=== PATIENT | male | born 1990 | race Two or more races ===

== ENCOUNTER 2017-02-08 22:34 | Inpatient (IN) | payer BC ==
[~2017-02-08] VITALS: Ht 177.8 cm; Wt 87.5 kg
[2017-02-08 22:15] VITALS: BP 131/95
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
--- NOTE | 2017-02-08 23:35 | NUR ---
MS RN NOTE: PATIENT OFF FLOOR FOR CT OF HEAD. ISOLATION PRECAUTION OBSERVED.
--- NOTE | 2017-02-08 23:40 | NUR ---
MS RN NOTE: PATIENT BACK FROM CT, NO ACUTE DISTRESS NOTED. WILL CONTINUE TO MONITOR.
[2017-02-09] MEDS ORDERED: DIPH50CA4 PO (00:11)
[2017-02-09] MEDS ORDERED: BACL20TA PO (00:11)
[2017-02-09] MEDS ORDERED: ALBU2.5V38 NEB (00:11)
[2017-02-09] MEDS ORDERED: DICY10CA59 PO (00:11)
[2017-02-09] MEDS ORDERED: QUET100T PO (00:11)
[2017-02-09] MEDS ORDERED: MAG30ORA PO (00:11)
[2017-02-09] MEDS ORDERED: BUPR2TAB3 SL (00:11)
[2017-02-09] MEDS ORDERED: CLON0.1T PO (00:11)
[2017-02-09] MEDS ORDERED: FOLI1TAB16 PO (00:17)
[2017-02-09] MEDS ORDERED: IBUP-1955 PO (00:17)
[2017-02-09] MEDS ORDERED: IBUP-51 PO (00:17)
[2017-02-09] MEDS ORDERED: GABA600T PO (00:17)
[2017-02-09] MEDS ORDERED: LITH300T3 PO (00:24)
[2017-02-09] MEDS ORDERED: KETO30VI14 IM (00:24)
[2017-02-09] MEDS ORDERED: LOPE-156 PO (00:24)
[2017-02-09] MEDS ORDERED: LORA2VIA11 IM (00:54)
[2017-02-09] MEDS ORDERED: ONDA4TAB8 SL (00:54)
[2017-02-09] MEDS ORDERED: OXCA300T4 PO (00:54)
[2017-02-09] MEDS ORDERED: THIA100T74 PO (00:54)
[2017-02-09] MEDS ORDERED: MAGN400O6 PO (00:54)
[2017-02-09] MEDS ORDERED: ONDA4VIA30 IM (00:54)
[2017-02-09] MEDS ORDERED: VANC1.5P9 IV (00:54)
[2017-02-09] MEDS ORDERED: POLY17PO4 PO (00:54)
[2017-02-09] MEDS ORDERED: PHEN30TA40 PO (00:54)
[2017-02-09] MEDS ORDERED: NORM10004 IV (00:54)
[2017-02-09] MEDS ORDERED: PIPE3.3711 IV (00:54)
[2017-02-09] MEDS ORDERED: MULT-24 PO (00:54)
[2017-02-09] MEDS ORDERED: VANC1.252 IV (00:58)
--- NOTE | 2017-02-09 01:00 | NUR ---
MS RN NOTE: MEDICATIONS FROM [facility] ENTERED TO RECONCILE MEDICATIONS. SPOKE TO DR. MEDINA REGARDING NEGATIVE CT HEAD RESULTS. INFORM DR. MEDINA THAT MEDICATIONS ARE ENTERED AND THAT ARE NO ADMIT ORDERS YET. MD WILL ENTER ORDERS. WILL CONTINUE TO MONITOR.
[2017-02-09] MEDS ORDERED: MAG HYDROX/AL HYDROX/SIMETH 30 ML UDC PO PRN (01:30)
[2017-02-09] MEDS ORDERED: KETOROLAC TROMETHAMINE INJ 30 MG/ML VIAL IM PRN (01:30)
[2017-02-09] MEDS ORDERED: DICYCLOMINE HCL 10 MG CAPSULE PO PRN (01:30)
[2017-02-09] MEDS ORDERED: IBUPROFEN 200 MG TABLET PO PRN (01:30)
[2017-02-09] MEDS ORDERED: ALBUTEROL FS 2.5 MG/3 ML VIAL.NEB NEB PRN (01:30)
[2017-02-09] MEDS ORDERED: diphenhydrAMINE HCL 50 MG CAPSULE PO PRN (01:30)
[2017-02-09] MEDS ORDERED: POLYETHYLENE GLYCOL 3350 17 GM POWD.PACK PO PRN (01:30)
[2017-02-09] MEDS ORDERED: CLONIDINE HCL 0.1 MG TABLET PO PRN (01:30)
[2017-02-09] MEDS ORDERED: MAGNESIUM HYDROXIDE 30 ML UDC PO PRN (01:30)
[2017-02-09] MEDS ORDERED: LORAZEPAM INJ 2 MG/ML VIAL IV PRN (02:00)
[2017-02-09] MEDS ORDERED: IBUPROFEN 200 MG TABLET ONE (05:12)
[2017-02-09] MEDS ORDERED: PIPERACILLIN /TAZOBACTAM 3.375 G VIAL IV ONE (05:25)
[2017-02-09] MEDS ORDERED: PIPERACILLIN /TAZOBACTAM 3.375 G VIAL IV SCH (06:00)
--- NOTE | 2017-02-09 06:00 | NUR ---
MS RN NOTE: PATIENT RESTING IN BED, NO ACUTE DISTRESS NOTED. BREATHING EVEN AND UNLABORED, NO SOB NOTED. IV TO RIGHT FOREARM IN PLACE, TO HANG ZOSYN PER MD ORDER. ISOLATION PRECAUTIONS OBSERVED. BED LOCKED AND IN LOWEST POSITION, CALL LIGHT IN REACH. WILL ENDORSE TO DAY NURSE TO CONTINUE WITH PLAN OF CARE.
[2017-02-09 06:43] LABS: BASOPHILS % (AUTO) 0.1 % (0.0-2.0); EOSINOPHILS # (AUTO) 0.3 /CMM (0.0-0.7); EOSINOPHILS % (AUTO) 2.4 % (0.0-6.0); HEMATOCRIT 42 % (39-51); HEMOGLOBIN 14.2 g/dL (13.5-17.5); LYMPHOCYTES # (AUTO) 1.5 /CMM (0.8-4.8); LYMPHOCYTES % (AUTO) 11.5 % (20.0-44.0); MEAN CORPUSCULAR HEMOGLOBIN 30 PG (26.0-33.0); MEAN CORPUSCULAR HGB CONC 34 g/dl (31.0-36.0); MEAN CORPUSCULAR VOLUME 88 fL (80-96); MONOCYTES # (AUTO) 0.9 /CMM (0.1-1.30); NEUTROPHILS # (AUTO) 10.4 /CMM (1.8-8.9); PLATELET COUNT (AUTO) 215 /CMM (150-450); RDW COEFFICIENT OF VARIATION 12.8 (11.5-15.0); RED BLOOD CELL COUNT(AUTO) 4.77 MIL/uL (4.5-6.0); WHITE BLOOD COUNT (AUTO) 13.2 K/uL (4.3-11.0)
[2017-02-09 07:26] LABS: ALBUMIN 3.5 g/dL (3.4-5.0); BILIRUBIN,TOTAL 1.2 mg/dL (0.2-1.0); CALCIUM, SERUM 8.7 mg/dL (8.5-10.1); CREATININE 1.1 mg/dL (0.6-1.3); MAGNESIUM 2.1 mg/dL (1.8-2.4); POTASSIUM 4.1 mmol/L (3.5-5.1); TOTAL PROTEIN, SERUM 7.1 g/dL (6.4-8.2)
--- NOTE | 2017-02-09 07:30 | NUR ---
MS RN AM NOTE: RECEIVED PATIENT IN BED, AAO X 3, ON RA, NO ACUTE DISTRESS NOTED. BREATHING EVEN AND UNLABORED, NO SOB NOTED. DENIES PAIN AT THIS TIME. IV TO RIGHT FOREARM #22G IN PLACE, FLUSHES WELL SITE CLEAR, . PT CLAIMS HE HAS WEAKNESS TO LEFT LEG, PATIENT WITH SLIGHT SLURRED SPEECH, ISOLATION PRECAUTIONS OBSERVED FOR R/O PTB. POC DISCUSSED FOR TODAY. BED LOCKED AND IN LOWEST POSITION, CALL LIGHT IN REACH. WILL CONTINUE TO MONITOR.
[2017-02-09 08:00] VITALS: BP 118/75
--- NOTE | 2017-02-09 08:15 | NUR ---
MS RN NOTES ADMINISTERED MEDICATIONS. PT C/O OF ROOM VERY HOT, INFORMED HIM THAT ENGINEERING HAS BEEN CALLED AND THAT WILL CHECK ON HIS ROOM.
--- NOTE | 2017-02-09 08:30 | NUR ---
MS RN NOTES PATIENT WANTS HIS DETOX MEDICATIONS, AND INFORMED HIM THAT WILL VERIFY WITH HIS ATTENDING MD FOR TODAY. ALSO PATIENT WANTS TO GET OUT OF HIS ROOM TO WALK AROUND THE HOSPITAL, EXPLAINED TO BANDAR THAT HE IS IN ISOLATION FOR NOW AND CANT BE WALKING OUTSIDE.
[2017-02-09] MEDS ORDERED: PHENOBARBITAL 30 MG TABLET PO SCH (09:00)
[2017-02-09] MEDS ORDERED: THIAMINE HCL 100 MG TABLET PO SCH (09:00)
[2017-02-09] MEDS ORDERED: VANCOMYCIN IV SCH (09:00)
[2017-02-09] MEDS ORDERED: DEXTROSE IV SCH (09:00)
[2017-02-09] MEDS ORDERED: BACLOFEN (10 MG) 10 MG TABLET PO PRN ×2 (09:00)
[2017-02-09] MEDS ORDERED: OXCARBAZEPINE 150 MG TABLET PO SCH (09:00)
[2017-02-09] MEDS ORDERED: FOLIC ACID 1 MG TABLET PO SCH (09:00)
[2017-02-09] MEDS ORDERED: QUETIAPINE FUMARATE 100 MG TABLET PO SCH (09:00)
[2017-02-09] MEDS ORDERED: MULTIVITAMINS,THERAGRAN 1 UDTAB TABLET PO SCH (09:00)
[2017-02-09] MEDS ORDERED: [UNRECOGNIZED DRUG - OTHER] IV SCH (09:00)
--- NOTE | 2017-02-09 09:00 | NUR ---
MS RN NOTES PATIENT VERY AGGRAVATED, HE WANTS TO GO BACK TO [facility] WHERE HE CAME FROM, I EXPLAINED TO HIM THAT HE WAS SENT BY THEM HERE FOR HIS R/O PTB AND STATED THAT HIS CXR WAS TAKEN THERE TWICE WITH NEGATIVE RESULTS. ALSO PATIENT STATED THAT THERE IS NO HOLD PAPERS THAT HE SIGNED AND NO REASON FOR HIM TO HAVE LIMITED FREEDOM OF ACTIVITY. DESPITE EXPLAINING HIS MEDICAL CONDITION, THE RISKS, AND THE BENEFITS OF BEING TREATED IN THE HOSPITAL, HE YANKED OUT HIS IV ACCESS, PICKED UP ALL HIS BELONGINGS, AND WALKED OUT. SECURITY WAS CALLED ON HIM, BUT HE STILL LEFT. MD AND NURSING [facility] ARCHITECT AWARE. Addendum: 02/09/17 at 1111 by ANISH MORLEY RN INCIDENT REPORT SUBMITTED Unique Id: [id number]
--- NOTE | 2017-02-09 09:40 | NUR ---
Social service consult requested by Dr. Metcalf regarding pt. coming to [facility] from [facility] in [place]. SW was unable to assess pt. due to pt. went awol this morning. Pt. was admitted to [facility] to rule out TB. Upon SW being notified pt. went awol, Quique Velazquez, supplier manager of infection control was notified of pt. going awol from the hospital.
== END 2017-02-09 09:00 | disposition left against medical advice (07) | DRG 179 ==
LOC: MEDSG2 22:34
PROVIDERS: ADMIT Internal Medicine; ATTEND Internal Medicine
DX: R76.11 Nonspecific reaction to tuberculin skin test without active tuberculosis (principal)
CPT/HCPCS: 36415; 70450-TC; 80053-TC; 83735-TC; 84100-TC; 85025-TC; A4216; J2543